=== PATIENT | female | born 1945 | race Caucasian/White ===

== ENCOUNTER 2021-08-07 02:56 | Emergency (ER) | payer MEDICARE ==
[~2021-08-07] VITALS: Ht 160 cm; Wt 50.4 kg
[2021-08-07] MEDS ORDERED: ELIQUIS5 MG PO (03:27)
[2021-08-07] MEDS ORDERED: FUROSEMIDE20 MG PO (03:27)
[2021-08-07] MEDS ORDERED: HYDRALAZINE HCL10 MG PO (03:27)
[2021-08-07] MEDS ORDERED: ZESTRIL2.5 MG PO (03:28)
[2021-08-07] MEDS ORDERED: CLONAZEPAM1 MG PO (03:28)
== END 2021-08-07 04:47 | disposition home or self-care (01) ==
LOC: ED 02:56
DX: K59.00 Constipation, unspecified (principal); I12.9 Hypertensive chronic kidney disease with stage 1 through stage 4 chronic kidney disease, or unspecified chronic kidney disease; N18.30 Chronic kidney disease, stage 3 unspecified; I48.91 Unspecified atrial fibrillation; Z88.0 Allergy status to penicillin; Z88.1 Allergy status to other antibiotic agents; Z79.899 Other long term (current) drug therapy
CPT/HCPCS: 74176; 81001; 99284-25